=== PATIENT | female | born 1975 | race Caucasian/White ===

== ENCOUNTER 2022-09-14 19:15 | Emergency (ER) | payer SELFPAY ==
[~2022-09-14] VITALS: Ht 160 cm; Wt 79.4 kg
[2022-09-14] MEDS ORDERED: LORAZEPAM 0.5 MG TAB PO ONE (19:45)
[2022-09-14] MEDS ORDERED: LORAZEPAM 0.5 MG TAB ONE (20:24)
== END 2022-09-14 22:10 | disposition home or self-care (01) ==
LOC: FSED 19:27
DX: R07.89 Other chest pain (principal); R00.2 Palpitations; R06.02 Shortness of breath; I10 Essential (primary) hypertension; E11.9 Type 2 diabetes mellitus without complications; J44.9 Chronic obstructive pulmonary disease, unspecified; I50.9 Heart failure, unspecified; F41.9 Anxiety disorder, unspecified; I25.2 Old myocardial infarction; R94.31 Abnormal electrocardiogram [ECG] [EKG]
CPT/HCPCS: 71045; 93005; 99284